=== PATIENT | female | born 1985 | race Caucasian/White ===

== ENCOUNTER 2018-06-12 05:49 | Emergency (ER) | payer OTHER, SELFPAY ==
[2018-06-12] MEDS ORDERED: KETOROLAC 30 MG/ML INJ ONE (06:34)
[2018-06-12] MEDS ORDERED: ONDANSETRON 4 MG/2 ML VIAL ONE (06:34)
[2018-06-12] MEDS ORDERED: NA CHLORIDE 0.9% 1,000 ML ONE (06:34)
[2018-06-12 06:40] LABS: Absolute Lymphocytes (CBC) 2.1 K/uL (0.7-4.9); Absolute Monocytes 0.5 K/uL (0.1-1.3); Absolute Neutrophil 3.1 K/uL (1.8-8.0); Basophils % 0.3 % (0-1.3); Hematocrit 40.8 % (36.0-45.0); Lymphocytes % 35.2 % (15.3-44.8); MCH 31.2 pg (27.0-35.0); MCV 90.2 fL (80-100); MPV 8.9 fL (7.6-11.3); Monocytes % 8.7 % (3.3-12.3); RBC Red Blood Cell Count 4.52 M/uL (3.86-4.86)
[2018-06-12 06:53] LABS: ALT/SGPT 49 U/L (12-78); AST/SGOT 30 U/L (15-37); Albumin 3.3 g/dL (3.4-5.0); Alkaline Phosphatase 125 U/L (45-117); BUN Blood Urea Nitrogen 13 mg/dL (7-18); Bicarbonate 27 mmol/L (21-32); Bilirubin Direct < 0.1 mg/dL (0-0.2); Bilirubin Total 0.2 mg/dL (0.2-1.0); Glucose Level 89 mg/dL (74-106); Lipase 143 U/L (73-393); Potassium 4.3 mmol/L (3.5-5.1); Protein, Total 6.8 g/dL (6.4-8.2); Sodium Level 138 mmol/L (136-145)
[2018-06-12 06:59] LABS: Urine Blood NEGATIVE (NEG); Urine Glucose NEGATIVE (NEG); Urine Protein NEGATIVE (NEG); Urine Specific Gravity 1.015 (1.005-1.030)
--- NOTE | 2018-06-12 07:17 | EDPHYS ---
Physician Documentation [facility] Name: Rivka Kim Age: 33 yrs Sex: Female : 1985 Arrival Date: 06/12/2018 Time: 05:50 Bed 6 Private MD: ED Physician Aguila Palencia HPI: 06/12 06:07 This 33 yrs old Female presents to ER via Ambulatory with complaints of joey Abdominal Pain - Side Pain. 06:07 The patient presents with abdominal pain abdominal distention in the lower abdomen. joey Onset: The symptoms/episode began/occurred just prior to arrival, this morning. The symptoms do not radiate. Associated signs and symptoms: none. Severity of pain: At its worst the pain was moderate in the emergency department the pain has improved mildly. The patient has not experienced similar symptoms in the past. 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 - Social history:: Smoking status: Patient uses tobacco products, smokes one pack cigarettes per day. - Ebola Screening: : Patient negative for fever greater than or equal to 101.5 degrees Fahrenheit, and additional compatible Ebola Virus Disease symptoms. - Family history:: not pertinent. ROS: 06:07 Constitutional: Negative for fever, chills, and weight loss, Eyes: Negative for injury, joey pain, redness, and discharge, ENT: Negative for injury, pain, and discharge, Neck: Negative for injury, pain, and swelling, Cardiovascular: Negative for chest pain, palpitations, and edema, Respiratory: Negative for shortness of breath, cough, wheezing, and pleuritic chest pain, Back: Negative for injury and pain, : Negative for injury, bleeding, discharge, and swelling, MS/Extremity: Negative for injury and deformity, Skin: Negative for injury, rash, and discoloration, Neuro: Negative for headache, weakness, numbness, tingling, and seizure, Psych: Negative for depression, anxiety, suicide ideation, homicidal ideation, and hallucinations, Allergy/Immunology: Negative for hives, rash, and allergies, Endocrine: Negative for neck swelling, polydipsia, polyuria, polyphagia, and marked weight changes, Hematologic/Lymphatic: Negative for swollen nodes, abnormal bleeding, and unusual bruising. 06:07 Abdomen/GI: Positive for abdominal pain, abdominal cramps, of the right lower quadrant. Exam: 06:07 Constitutional: This is a well developed, well nourished patient who is awake, alert, joey and in no acute distress. Head/Face: Normocephalic, atraumatic. Eyes: Pupils equal round and reactive to light, extra-ocular motions intact. Lids and lashes normal. Conjunctiva and sclera are non-icteric and not injected. Cornea within normal limits. Periorbital areas with no swelling, redness, or edema. ENT: Nares patent. No nasal discharge, no septal abnormalities noted. Tympanic membranes are normal and external auditory canals are clear. Oropharynx with no redness, swelling, or masses, exudates, or evidence of obstruction, uvula midline. Mucous membranes moist. Neck: Trachea midline, no thyromegaly or masses palpated, and no cervical lymphadenopathy. Supple, full range of motion without nuchal rigidity, or vertebral point tenderness. No Meningismus. Chest/axilla: Normal chest wall appearance and motion. Nontender with no deformity. No lesions are appreciated. Cardiovascular: Regular rate and rhythm with a normal S1 and S2. No gallops, murmurs, or rubs. Normal PMI, no JVD. No pulse deficits. Respiratory: Lungs have equal breath sounds bilaterally, clear to auscultation and percussion. No rales, rhonchi or wheezes noted. No increased work of breathing, no retractions or nasal flaring. Back: No spinal tenderness. No costovertebral tenderness. Full range of motion. Female : Normal external genitalia. Skin: Warm, dry with normal turgor. Normal color with no rashes, no lesions, and no evidence of cellulitis. MS/ Extremity: Pulses equal, no cyanosis. Neurovascular intact. Full, normal range of motion. Neuro: Awake and alert, GCS 15, oriented to person, place, time, and situation. Cranial nerves II-XII grossly intact. Motor strength 5/5 in all extremities. Sensory grossly intact. Cerebellar exam normal. Normal gait. Psych: Awake, alert, with orientation to person, place and time. Behavior, mood, and affect are within normal limits. 06:07 Abdomen/GI: Inspection: abdomen appears normal, Bowel sounds: normal, Palpation: mild abdominal tenderness, in the right lower quadrant, Liver: no appreciated palpable abnormalities, Hernia: not appreciated. Vital Signs: 06:06 BP 133 / 83; Pulse 61; Resp 18 S; Temp 98.1(O); Pulse Ox 100% on R/A; Weight 70.31 kg jd3 (R); Height 5 ft. 7 in. (170.18 cm) (R); Pain 4/10; 06:51 BP 96 / 75; Pulse 56; Resp 16 S; Pulse Ox 100% on R/A; jd3 07:38 BP 110 / 72; Pulse 54; Resp 16; Temp 97.5; Pulse Ox 99% on R/A; ph 06:06 Body Mass Index 24.28 (70.31 kg, 170.18 cm) jd3 MDM: 05:55 Patient medically screened. [facility] 06:09 Data reviewed: vital signs, nurses notes, lab test result(s), radiologic studies, CT joey scan. 06/12 06:06 Order name: Basic Metabolic Panel; Complete Time: 07:00 [facility] 06/12 06:06 Order name: CBC with Diff; Complete Time: 07:00 [facility] 06/12 06:06 Order name: Creatinine for Radiology; Complete Time: 07:00 [facility] 06/12 06:06 Order name: Hepatic Function; Complete Time: 07:00 [facility] 06/12 06:06 Order name: Lipase; Complete Time: 07:00 [facility] 06/12 06:06 Order name: Urine Culture [facility] 06/12 06:06 Order name: IV Saline Lock; Complete Time: 06:31 [facility] 06/12 06:06 Order name: CT Stone Protocol [facility] 06/12 06:33 Order name: US Transvaginal Study (Probe) [facility] 06/12 06:33 Order name: Urine Dipstick--Ancillary (enter results); Complete Time: 07:00 [place] 06/12 06:33 Order name: Urine --Ancillary (enter results); Complete Time: 07:00 [place] 06/12 06:06 Order name: Labs collected and sent; Complete Time: 06:31 [facility] 06/12 06:06 Order name: Urine Dipstick-Ancillary (obtain specimen); Complete Time: 06:30 [facility] 06/12 06:06 Order name: Urine Test (obtain specimen); Complete Time: 06:30 [facility] Administered Medications: 06:52 Drug: NS 0.9% 1000 ml Route: IV; Rate: 1 bolus; Site: left antecubital; jd3 07:43 Follow up: Response: No adverse reaction; IV Status: Completed infusion ph 06:52 Drug: TORadol 30 mg Route: IVP; Site: left antecubital; jd3 07:44 Follow up: Response: No adverse reaction ph 06:52 Drug: Zofran 4 mg Route: IVP; Site: left antecubital; jd3 07:44 Follow up: Response: No adverse reaction ph Disposition: 06/12/18 07:16 Discharged to Home. Impression: Abdominal tenderness, Other ovarian cysts - ruptured. - Condition is Stable. - Discharge Instructions: Abdominal Pain, Adult, Ovarian Cyst, Abdominal Pain, Adult, [id number], Ovarian Cyst, [id number]. - Prescriptions for Tylenol- Codeine #3 300-30 mg Oral Tablet - take 2 tablets by ORAL route every 6 hours As needed; 26 tablet. Motrin IB 200 mg Oral Tablet - take 2 tablet by ORAL route every 6 hours As needed as needed with food; 30 tablet. - Medication Reconciliation Form, Thank You Letter, Antibiotic Education, Prescription Opioid Use form. - Follow up: Private Physician; When: 2 - 3 days; Reason: Recheck today's complaints, Continuance of care, Re-evaluation by your physician. Follow up: Letty Buck MD; When: 2 - 3 days; Reason: Recheck today's complaints, Re-evaluation by your physician. - Problem is new. - Symptoms have improved. Signatures: Dispatcher [employer] EDAguila Hyatt MD MD cha Hall, Patricia, RN RN Byron Iglesias RN RN jd3 Corrections: (The following items were deleted from the chart) 07:44 07:16 06/12/2018 07:16 Discharged to Home. Impression: Abdominal tenderness; Other ph ovarian cysts - ruptured. Condition is Stable. Discharge Instructions: Abdominal Pain, Adult, Abdominal Pain, Adult, [id number]. Prescriptions for Tylenol-Codeine #3 300-30 mg Oral Tablet - take 2 tablets by ORAL route every 6 hours As needed; 26 tablet, Motrin IB 200 mg Oral Tablet - take 2 tablet by ORAL route every 6 hours As needed as needed with food; 30 tablet. and Forms are Medication Reconciliation Form, Thank You Letter, Antibiotic Education, Prescription Opioid Use. Follow up: Private Physician; When: 2 - 3 days; Reason: Recheck today's complaints, Continuance of care, Re-evaluation by your physician. Follow up: Mini Rekhi; When: 2 - 3 days; Reason: Recheck today's complaints, Re-evaluation by your physician. Problem is new. Symptoms have improved. joey
--- NOTE | 2018-06-12 07:17 | ER ---
Nurse's Notes [facility] Name: Rivka Kim Age: 33 yrs Sex: Female : 1985 Arrival Date: 06/12/2018 Time: 05:50 Bed 6 Private MD: Diagnosis: Abdominal tenderness;Other ovarian cysts-ruptured Presentation: 06/12 06:03 Presenting complaint: Patient states: " I woke up this morning with extreme pain in my jd3 lower stomach. I am not having any nausea,vomiting, and diarrhea.". Transition of care: patient was not received from another setting of care. Onset of symptoms was June 12, 2018. Risk Assessment: Do you want to hurt yourself or someone else? Patient reports no desire to harm self or others. Initial Sepsis Screen: Does the patient meet any 2 criteria? No. Patient's initial sepsis screen is negative. Does the patient have a suspected source of infection? No. Patient's initial sepsis screen is negative. Care prior to arrival: None. 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 - Social history:: Smoking status: Patient uses tobacco products, smokes one pack cigarettes per day. - Ebola Screening: : Patient negative for fever greater than or equal to 101.5 degrees Fahrenheit, and additional compatible Ebola Virus Disease symptoms. - Family history:: not pertinent. Screenin:11 Abuse screen: Denies threats or abuse. Nutritional screening: No deficits noted. jd3 Tuberculosis screening: No symptoms or risk factors identified. Fall Risk Ambulatory Aid- None/Bed Rest/Nurse Assist (0 pts). Gait- Normal/Bed Rest/Wheelchair (0 pts) Mental Status- Oriented to own ability (0 pts). Total Haq Fall Scale indicates No Risk (0-24 pts). Assessment: 06:07 General: Appears in no apparent distress. uncomfortable, Behavior is calm, cooperative, jd3 appropriate for age. Pain: Complains of pain in abdomen Pain currently is 4 out of 10 on a pain scale. Quality of pain is described as sharp, tender. Neuro: Level of Consciousness is awake, alert, obeys commands, Oriented to person, place, time, situation. Cardiovascular: Heart tones S1 S2 present Capillary refill < 3 seconds Patient's skin is warm and dry. Respiratory: Airway is patent Respiratory effort is even, unlabored, Respiratory pattern is regular, symmetrical, Breath sounds are clear bilaterally. GI: Abdomen is round non-distended, Bowel sounds present X 4 quads. Abd is soft Abdomen is tender to palpation in right upper quadrant and right lower quadrant Patient currently denies diarrhea, nausea, vomiting. : No signs and/or symptoms were reported regarding the genitourinary system. EENT: No signs and/or symptoms were reported regarding the EENT system. Derm: Skin is intact, Skin is dry, Skin is normal, Skin temperature is warm. Musculoskeletal: Circulation, motion, and sensation intact. Range of motion: intact in all extremities. 06:28 Reassessment: Pt taken to CT. ea 06:51 Reassessment: Patient appears in no apparent distress at this time. Patient and/or jd3 family updated on plan of care and expected duration. Pain level reassessed. Patient is alert, oriented x 3, equal unlabored respirations, skin warm/dry/pink. 07:10 Reassessment: Patient appears in no apparent distress at this time. US at bedside. ph 07:37 Reassessment: Patient appears in no apparent distress at this time. Patient and/or ph family updated on plan of care and expected duration. Pain level reassessed. Patient is alert, oriented x 3, equal unlabored respirations, skin warm/dry/pink. 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 Vital Signs: 06:06 BP 133 / 83; Pulse 61; Resp 18 S; Temp 98.1(O); Pulse Ox 100% on R/A; Weight 70.31 kg jd3 (R); Height 5 ft. 7 in. (170.18 cm) (R); Pain 4/10; 06:51 BP 96 / 75; Pulse 56; Resp 16 S; Pulse Ox 100% on R/A; jd3 07:38 BP 110 / 72; Pulse 54; Resp 16; Temp 97.5; Pulse Ox 99% on R/A; ph 06:06 Body Mass Index 24.28 (70.31 kg, 170.18 cm) jd3 ED Course: 05:50 Patient arrived in ED. ds1 05:55 Byron Mireles, RN is Primary Nurse. jd3 05:55 Aguila Palencia MD is Attending Physician. joey 06:05 Triage completed. jd3 06:07 Arm band placed on. jd3 06:11 Patient has correct armband on for positive identification. Bed in low position. Call j light in reach. Side rails up X 1. 06:23 Inserted saline lock: 20 gauge in left antecubital area, using aseptic technique. Blood ms collected. 06:39 CT Stone Protocol In Process Unspecified. EDMS 07:09 US Transvaginal Study (Probe) In Process Unspecified. EDMS 07:16 Letty Buck MD is Referral Physician. joey 07:38 No provider procedures requiring assistance completed. IV discontinued, intact, ph bleeding controlled, No redness/swelling at site. Pressure dressing applied. Administered Medications: 06:52 Drug: NS 0.9% 1000 ml Route: IV; Rate: 1 bolus; Site: left antecubital; jd3 07:43 Follow up: Response: No adverse reaction; IV Status: Completed infusion ph 06:52 Drug: TORadol 30 mg Route: IVP; Site: left antecubital; jd3 07:44 Follow up: Response: No adverse reaction ph 06:52 Drug: Zofran 4 mg Route: IVP; Site: left antecubital; jd3 07:44 Follow up: Response: No adverse reaction ph Outcome: 07:16 Discharge ordered by . joey 07:44 Patient left the ED. ph Signatures: Dispatcher [employer] EDMS Aguila Palencia MD MD cha Sanford, Demi ds1 Ivy Owens ms, Patricia, RN RN ph Antunez, Elena, RN RN ea Davies, Jonathon, RN RN jd3 Corrections: (The following items were deleted from the chart) 06:52 06:52 NS 0.9% 1000 ml IV at 1 bolus in right antecubital jd3 jd3
--- NOTE | 2018-06-12 08:46 | RAD REPORT ---
EXAM DESCRIPTION: CT - Stone Protocol - 06/12/2018 6:39 am CLINICAL HISTORY: Abdominal pain. Lower abdominal pain. COMPARISON: None. TECHNIQUE: Computed axial tomography of the abdomen pelvis was obtained without oral or IV contrast. Lack of IV and oral contrast limits evaluation of solid organs, bowel, and vessels. Coronal reformat kristin images were obtained and reviewed. Preliminary report generated by virtual radiologic interview p rior to dictation All CT scans are performed using dose optimization technique as appropriate and may include automated exposure control or mA/KV adjustment according to patient size. FINDINGS: A renal calculus is not seen. An ureteral calculus is not noted. A bladder calculus is not present. The liver, spleen, pancreas and adrenals appear grossly normal There is no evidence of diverticulitis. The appendix appears normal. An adnexal mass is not seen. A minimal amount of free fluid in the pelvis probably is physiologic. Curvilinear radiopaque densities within the pelvis probably represent tubal occlusion coils IMPRESSION: Negative for a genitourinary calculus
--- NOTE | 2018-06-12 08:53 | RAD REPORT ---
EXAM DESCRIPTION: US - Transvaginal Study Probe - 06/12/2018 7:10 am CLINICAL HISTORY: Pelvic pain COMPARISON: 06/11/2018 CT FINDINGS: The uterus measures 7 x 4 x 4cm. A fibroid is not seen. Endometrial stripe measures 12 mil limeters. Curvilinear echogenic structures within the peripheral aspect of the uterus bilaterally pro bably represents tubal occlusion coils. 2.1 centimeter complex right ovarian cyst is seen. Small amount of free fluid is present. Left ovary is normal in size and echotexture IMPRESSION: 2.1 centimeter complex right ovarian cyst probably represents a hemorrhagic cyst. Small amount of free fluid could be physiologic or secondary to leakage from the hemorrhagic ovarian cyst.
== END 2018-06-12 07:44 | disposition home or self-care (01) ==
LOC: ER 05:49
DX: N83.299 Other ovarian cyst, unspecified side (principal); F17.210 Nicotine dependence, cigarettes, uncomplicated
CPT/HCPCS: 36415; 74176; 76377; 76830; 80048; 80076; 81003; 81025; 83690; 85025; 87086; 87088; 96361; 96374; 96375; 99284; J2405; J7030

== ENCOUNTER 2018-09-15 16:39 | Emergency (ER) | payer SELFPAY ==
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
== END 2018-09-15 17:48 | disposition home or self-care (01) ==
LOC: ER 16:39
DX: S00.90XA Unspecified superficial injury of unspecified part of head, initial encounter (principal); S06.0X9A Concussion with loss of consciousness of unspecified duration, initial encounter; V89.2XXA Person injured in unspecified motor-vehicle accident, traffic, initial encounter
CPT/HCPCS: 70450; 99284

== ENCOUNTER 2019-07-12 21:30 | Emergency (ER) | payer SELFPAY ==
--- OUTSIDE RECORDS SUMMARY | 2019-07-12 21:32 | XMS REPORT | Encounter Summary ---
:1985 Author Reason for Visit Viral hepatitis C Instructions 1. Viral hepatitis C US, abdomen, complete 2. Liver function tests abnormal CMP, serum or plasma CBC w/ auto diff hepatitis panel (A+B+C), acute, serum unlisted lab - hepatitis C Ab w/rfl RNA, PCR w/rfl genotype,lipa HBsAg (hepatitis B surface Ag), serum hepatitis B surface Ab, qualitative, serum lipid panel, serum 3. Fatigue TSH, serum or plasma vitamin D, 25-hydroxy, total, serum HbA1c (hemoglobin A1c), blood Discussion Note: None recorded.Patient educational handouts: No information available. Plan of Care Reminders Provider Appointments None recorded. Lab CMP, Serum [facility] or Plasma 04/21/2019 CBC W/ Auto [facility] Diff 04/21/2019 Hepatitis [facility] Panel (A+B+C), Acute, 04/21/2019 Serum Unlisted Lab [facility] 04/21/2019 HBsAg [facility] (Hepatitis B Surface 04/21/2019 Ag), Serum Hepatitis B [facility] Surface Ab, 04/21/2019 Qualitative, Serum Lipid Panel, [facility] Serum 04/21/2019 TSH, Serum [facility] or Plasma 04/21/2019 Vitamin D, [facility] 25-Hydroxy, Total, 04/21/2019 Serum HbA1C [facility] (Hemoglobin a1C), 04/21/2019 Blood Referral None recorded. Procedures None recorded. Surgeries None recorded. Imaging US, Abdomen, [facility] Complete 04/21/2019 [facility] ([facility]) Medications Name Start Date hydrocodone 10 mg-acetaminophen 325 mg tablet Take 1 tablet 3 times a day by oral route. Soma 350 mg tablet Take 1 tablet 3 times a day by oral route. Medications Administered None recorded. Vitals Height Weight BMI Blood Pressure 5 ft 6 in 181.6 lbs 29.3 kg/m2 123/81 mm[Hg] Lab Results None recorded. Allergies Code Code System Name Reaction Severity Status Onset NKDA Problems Name Status Onset Date Source Elevated Liver Enzymes Level Active 04/05/2019 Viral Hepatitis C Active 04/19/2019 Smoker Active 04/19/2019 Chronic Back Pain Active 04/19/2019 Procedures Date Name Performed by 04/21/2019 US, Abdomen, Complete [facility] ([facility]) [address] [place] [address] (Work Place) Vaccine List None recorded. Social History Tobacco Smoking Status Heavy Tobacco Smoker (1 PPD) Past Encounters 04/21/2019 Viral Hepatitis C; Liver Function Tests Abnormal; Fatigue Kel Dash, SUBSCRIPTION AGENT: [address], [place] [address], Ph. 04/19/2019 Contraception Care Management Shaunna Toledo, SUBSCRIPTION AGENT: [address], [place] [address], Ph. History of Present Illness Note: <p>Patient here for results on lab test..Patient her with [facility] . 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 Brother in prisonwith hep c but getting treatment and other sister has hep c but not in treatment. Patient stated shesometimes have abdominal pain . </p> Review of Systems Comprehensive General Adult ROS Reported By: Patient Constitutional: Constitutional: no fever, no chills, no malaise Cardiovascular: Cardiovascular: no chest pain, no palpitations Respiratory: Respiratory: no cough, no shortness of breath Gastrointestinal: Gastrointestinal: no nausea, no vomiting, no constipation, normal appetite, no diarrhea, not vomiting blood, no dyspepsia, abdominal pain Genitourinary: Genitourinary: no incontinence, no difficulty urinating, no hematuria, no increased frequency Musculoskeletal: Musculoskeletal: no muscle aches, no muscle weakness, no arthralgias/joint pain, no back pain, no swelling in the extremities, no neck pain, no difficulty walking, no cramps, no osteoporosis, no fractures Integumentary: Skin: no rashes; Face acne, hair grown on face Neurologic: Neurologic: no dizziness Psychiatric: Psych: no depression, no sleep disturbances, feeling safe in a relationship, no alcohol abuse, no anxiety, no hallucinations, no suicidal thoughts, no mood swings, no memory loss, no agitation, no dementia, no delirium Endocrine: Endocrine: no fatigue Hematologic/Lymphatic: Hematologic/Lymphatic no swollen glands, no bruising, no excessive bleeding, no anemia, no phlebitis Allergic/Immunologic: Allergy/Immunologic: no runny nose, no sinus pressure, no itching, no hives, no frequent sneezing Physical Exam General Adult Exam Reported By: Patient Constitutional: General Appearance: healthy-appearing, well-developed, obese. Level of Distress: NAD. Ambulation: ambulating normally Psychiatric: Mental Status: active and alert Head: Head: normocephalic, atraumatic Eyes: Lids and Conjunctivae: non-injected, no discharge, no pallor. Pupils: PERRLA. Corneas: grossly intact. Fundoscopic: grossly normal except where noted. EOM: EOMI. Lens: clear. Sclerae: non-icteric. Vision: peripheral vision grossly intact, acuity grossly intact ENMT: Lips, Teeth, and Gums: no mouth or lip ulcers, no bleeding gums, normal dentition. Oropharynx: moist mucous membranes, no erythema, no exudates, tonsils not enlarged Neck: Lymph Nodes: no cervical LAD Lungs: Respiratory effort: no dyspnea. Auscultation: breath sounds normal, no wheezing, no rales/crackles Cardiovascular: Heart Auscultation: RRR, no murmurs Abdomen: Bowel Sounds: normal. Inspection and Palpation: soft, non-distended, no tenderness, no guarding, no rebound tenderness, no masses, no CVA tenderness Musculoskeletal:: Motor Strength and Tone: normal motor strength, normal tone. Joints, Bones, and Muscles: normal movement of all extremities, no bony abnormalities, no contractures, no malalignment, no tenderness. Extremities: no cyanosis, no edema, no varicosities, no palpable cord Skin: Inspection and palpation: no rash, no lesions, no ulcer, no abnormal nevi, no induration, no nodules, good turgor, no jaundice; Facial acne, hirsutism
[2019-07-12] MEDS ORDERED: TETANUS & DIPHTHERIA TOX,ADULT 0.5 ML VIAL ONE (22:00)
[2019-07-12] MEDS ORDERED: CLINDAMYCIN HCL 150 MG CAP ONE (22:00)
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
[2019-07-13 01:29] VITALS: BP 129/76; TEMP 97.4; O2SAT 98
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
== END 2019-07-12 22:47 | disposition home or self-care (01) ==
LOC: ER 21:30
DX: S91.114A Laceration without foreign body of right lesser toe(s) without damage to nail, initial encounter (principal); W22.8XXA Striking against or struck by other objects, initial encounter; Y93.89 Activity, other specified; Y92.9 Unspecified place or not applicable; Z23 Encounter for immunization; F17.210 Nicotine dependence, cigarettes, uncomplicated
CPT/HCPCS: 90471; 90714; 99284

== ENCOUNTER 2019-07-30 10:29 | Emergency (ER) | payer SELFPAY ==
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
[2019-07-30 13:06] VITALS: BP 144/83; TEMP 97.9
[2019-07-30 13:07] VITALS: O2SAT 98
== END 2019-07-30 11:33 | disposition home or self-care (01) ==
LOC: ER 10:29
DX: M54.2 Cervicalgia (principal); V43.52XA Car driver injured in collision with other type car in traffic accident, initial encounter; B19.20 Unspecified viral hepatitis C without hepatic coma
CPT/HCPCS: 70450; 72125; 99283